=== PATIENT | female | born 1995 | race Caucasian/White ===

== ENCOUNTER → 2024-11-03 10:27 | Outpatient (REF) | payer OTHER, SELFPAY | LOC: RAD 10:27 | PROVIDERS: ATTENDING PHYSICIAN Obstetrics & Gynecology; FAMILY PHYSICIAN Internal Medicine | DX: N94.10 Unspecified dyspareunia (principal) | CPT/HCPCS: 76830; 76856 ==

== ENCOUNTER → 2024-11-29 11:52 | Outpatient (REF) | payer OTHER, SELFPAY | LOC: HWRAD 11:52 | PROVIDERS: ATTENDING PHYSICIAN Nurse Practitioner Adult Health | DX: K59.01 Slow transit constipation (principal) | CPT/HCPCS: 74018 ==

== ENCOUNTER → 2024-12-08 15:17 | Outpatient (REF) | payer OTHER, SELFPAY | LOC: RCS 15:17 | PROVIDERS: ATTENDING PHYSICIAN Nurse Practitioner Gerontology; FAMILY PHYSICIAN Internal Medicine | DX: R07.9 Chest pain, unspecified (principal); R42 Dizziness and giddiness; R00.2 Palpitations | CPT/HCPCS: 93306 ==